=== PATIENT | male | born 1960 | race Caucasian/White ===

== ENCOUNTER → 2017-01-03 | Outpatient (CLI) | payer MEDICARE, BC, OTHER | LOC: M LAB 08:22 | PROVIDERS: ATTEND Urology | DX: N40.1 Benign prostatic hyperplasia with lower urinary tract symptoms (principal) | CPT/HCPCS: 36415; G0103 ==

== ENCOUNTER → 2018-12-10 | Outpatient (REF) | payer MEDICARE, OTHER ==
[2018-12-10 13:29] LABS: BASO % 0.6 % (0.0-1.0); EOS # 0.1 10^3/uL (0.0-0.50); EOS % 2.4 % (0.0-3.0); HEMATOCRIT 41.3 % (42.0-52.0); HEMOGLOBIN 13.5 g/dl (13.5-17.5); LYMPH # 1.4 10^3/uL (1.5-4.5); LYMPH % 26.6 % (24.0-44.0); MEAN CORPUSCULAR HGB CONC 32.7 g/dl (32.0-36.5); MEAN CORPUSCULAR VOLUME 88.6 fl (80.0-96.0); MONO # 0.5 10^3/uL (0.0-0.8); MONO % 8.6 % (0.0-5.0); NEUTROPHILS # 3.3 10^3/uL (1.8-7.7); NEUTROPHILS % 61.6 % (36.0-66.0); PLATELET COUNT, AUTOMATED 161 10^3/uL (150-450); RED BLOOD COUNT 4.66 10^6/uL (4.30-6.10); WHITE BLOOD COUNT 5.3 10^3/uL (4.0-10.0)
== END ==
LOC: M LAB REF 12:58
PROVIDERS: ATTEND Internal Medicine Nephrology
DX: I10 Essential (primary) hypertension (principal); R60.0 Localized edema; N40.1 Benign prostatic hyperplasia with lower urinary tract symptoms

== ENCOUNTER → 2020-07-19 | Outpatient (REF) | payer MEDICARE, OTHER ==
[2020-07-19 19:59] LABS: FREE THYROXINE INDEX 3.2 % (1.4-3.8); THYROID STIMULATING HORMONE 3.21 uIU/ML (0.358-3.740); THYROXINE (T4) 9.4 UG/DL (4.5-12.0)
== END ==
LOC: M LAB REF 17:11
PROVIDERS: ATTEND Nurse Practitioner Family
DX: D44.0 Neoplasm of uncertain behavior of thyroid gland (principal)

== ENCOUNTER → 2020-10-28 | Outpatient (CLI) | payer MEDICARE, OTHER ==
--- NOTE | 2020-10-28 12:30 | REP ---
INDICATION: SECOND READ ON [facility] RAD REPT. COMPARISON: Ultrasound soft tissues neck 08/11/2020 performed at [facility]. TECHNIQUE: Ultrasound was only performed of the palpable lump in the left neck soft tissues. The thyroid was not imaged. FINDINGS: Only the left neck soft tissues in the region of the palpable lump was scanned sonographically. The thyroid was not imaged. IMPRESSION: If evaluation of the thyroid is desired, a separate order for that exam should be generated. <Electronically signed by Elliott Glez > 10/28/20 [id number]
== END ==
LOC: M RAD 10:27
PROVIDERS: ATTEND Nurse Practitioner Family
DX: R22.1 Localized swelling, mass and lump, neck (principal)

== ENCOUNTER → 2021-02-28 | Outpatient (REF) | payer MEDICARE, BC, OTHER | LOC: M LAB REF 12:52 | PROVIDERS: ATTEND Nurse Practitioner Family | DX: E83.42 Hypomagnesemia (principal) ==

== ENCOUNTER 2021-09-12 11:22 | Emergency (ER) | payer MEDICARE, BC, OTHER ==
[~2021-09-12] VITALS: Ht 177.8 cm; Wt 138.8 kg
[2021-09-12] MEDS ORDERED: LOSA100T45 (11:40)
[2021-09-12] MEDS ORDERED: XARE20TA (11:40)
[2021-09-12] MEDS ORDERED: KLOR CON EF (11:40)
[2021-09-12] MEDS ORDERED: SPIR-10 (11:40)
[2021-09-12] MEDS ORDERED: CARV25TA (11:40)
[2021-09-12] MEDS ORDERED: MAGN400T35 (11:40)
[2021-09-12] MEDS ORDERED: ANAS1TAB2 (11:40)
[2021-09-12] MEDS ORDERED: AMLO1TAB24 (11:40)
[2021-09-12] MEDS ORDERED: OMEP40CA5 (11:40)
[2021-09-12] MEDS ORDERED: FLUV40CA3 (11:40)
[2021-09-12 14:50] VITALS: BP 138/77
== END 2021-09-12 14:51 | disposition home or self-care (01) ==
LOC: M ED 11:22
DX: S20.219A Contusion of unspecified front wall of thorax, initial encounter (principal); Y04.8XXA Assault by other bodily force, initial encounter; Y92.099 Unspecified place in other non-institutional residence as the place of occurrence of the external cause; Y93.9 Activity, unspecified; Y99.9 Unspecified external cause status; I50.9 Heart failure, unspecified; I10 Essential (primary) hypertension; E78.5 Hyperlipidemia, unspecified; M54.9 Dorsalgia, unspecified; G51.0 Bell's palsy; Z86.718 Personal history of other venous thrombosis and embolism

== ENCOUNTER → 2021-11-28 | Outpatient (CLI) | payer MEDICARE, BC, OTHER ==
[~2021-11-28] MED LIST: AMLO1TAB24; ANAS1TAB2; CARV25TA; FLUV40CA3; KLOR CON EF; LOSA100T45; MAGN400T35; OMEP40CA5; SPIR-10; XARE20TA
== END ==
LOC: M WHC 11:01
PROVIDERS: ATTEND Nurse Practitioner Family
DX: N40.1 Benign prostatic hyperplasia with lower urinary tract symptoms (principal); N18.31 Chronic kidney disease, stage 3a

== ENCOUNTER → 2021-12-21 | Outpatient (CLI) | payer MEDICARE, BC, OTHER | LOC: M RAD 13:42 | PROVIDERS: ATTEND Physician Assistant Medical | DX: M79.621 Pain in right upper arm (principal); M79.89 Other specified soft tissue disorders ==

== ENCOUNTER → 2022-12-06 | Outpatient (CLI) | payer MEDICARE, BC, OTHER ==
[~2022-12-06] MED LIST changes: -LOSA100T45; +LOSA100T46
== END ==
LOC: M RAD 07:17
PROVIDERS: ATTEND Family Medicine
DX: I71.40 Abdominal aortic aneurysm, without rupture, unspecified (principal)

== ENCOUNTER → 2023-10-10 | Outpatient (REF) | payer MEDICARE, OTHER ==
[2023-10-13 15:22] LABS: PSA FREE 0.87 ng/mL; PSA TOTAL 5.8 ng/mL (0.0-4.0)
== END ==
LOC: M LAB REF 17:04
PROVIDERS: ATTEND Nurse Practitioner Family
DX: C61 Malignant neoplasm of prostate (principal)

== ENCOUNTER → 2025-01-27 | Outpatient (CLI) | payer MEDICARE, BC | LOC: M PLAIMG 10:04 | PROVIDERS: ATTEND Family Medicine | DX: R06.02 Shortness of breath (principal); Z77.090 Contact with and (suspected) exposure to asbestos; I82.721 Chronic embolism and thrombosis of deep veins of right upper extremity ==

== ENCOUNTER → 2025-02-03 | Outpatient (CLI) | payer MEDICARE, BC | LOC: M RAD 11:03 | PROVIDERS: ATTEND Nurse Practitioner Family | DX: N18.30 Chronic kidney disease, stage 3 unspecified (principal); N40.1 Benign prostatic hyperplasia with lower urinary tract symptoms; N32.89 Other specified disorders of bladder ==

== ENCOUNTER → 2025-02-05 | Outpatient (CLI) | payer MEDICARE, BC | LOC: M RAD 16:20 | PROVIDERS: ATTEND Urology | DX: C61 Malignant neoplasm of prostate (principal); R97.20 Elevated prostate specific antigen [PSA] ==

== ENCOUNTER → 2025-04-13 | Outpatient (CLI) | payer MEDICARE, BC | LOC: M RAD 09:22 | PROVIDERS: ATTEND Family Medicine | DX: I65.23 Occlusion and stenosis of bilateral carotid arteries (principal) ==